=== PATIENT | female | born 1995 | race Caucasian/White ===

== ENCOUNTER 2017-05-30 12:02 | Emergency (ER) | payer BC, MEDICAID ==
[~2017-05-30] VITALS: Ht 160 cm; Wt 69.9 kg
[2017-05-30 12:10] VITALS: BP_SYST 148
[2017-05-30 13:05] LABS: BILIRUBIN,URINE NEGATIVE (NEGATIVE); CLARITY/URINE CLEAR (CLEAR); COLOR,URINE YELLOW (YELLOW); GLUCOSE,URINE NEGATIVE (NEGATIVE); KETONES,URINE NEGATIVE (NEGATIVE); LEUKOCYTE ESTERASE ,URINE TRACE (NEGATIVE); NITRITE, URINE NEGATIVE (NEGATIVE); PROTEIN URINE NEGATIVE (NEGATIVE); UROBILINOGEN,URINE 0.2 (0.2-1.0)
[2017-05-30 13:13] LABS: HCG,QUAL RESULT NEGATIVE (NEGATIVE)
[2017-05-30 13:15] LABS: BLOOD, URINE TRACE (NEGATIVE)
[2017-05-30 13:31] LABS: BACTERIA,URINE FEW /HPF (None Seen); RBC,URINE 0-3 /HPF (0-3)
[2017-05-30 13:32] LABS: MUCUS,URINE 1+ /LPF (None Seen)
[2017-05-30 13:36] LABS: CALCIUM 9.3 mg/dL (8.4-11.0); CREATININE 0.65 mg/dL (0.55-1.30)
[2017-05-30 13:41] LABS: ALBUMIN 4.3 g/dL (3.4-4.8); TOTAL BILIRUBIN 0.4 mg/dL (0.0-1.0)
[2017-05-30 13:57] LABS: BASOPHILS % (AUTO) 0.3 % (0.0-2.0); EOSINOPHILS # (AUTO) 0.1 K/uL (0.0-0.4); EOSINOPHILS % (AUTO) 0.9 % (0.0-4.0); HEMATOCRIT 42.7 % (36-48); HEMOGLOBIN 14.3 g/dL (12.0-16.0); LYMPHOCYTES # (AUTO) 2.1 K/uL (1.0-5.5); LYMPHOCYTES % (AUTO) 23.9 % (20.5-51.5); MEAN CORPUSCULAR HEMOGLOBIN 30 pg (27-31); MEAN CORPUSCULAR HGB CONC 34 % (32-36); MEAN CORPUSCULAR VOLUME 90 fL (79.0-98.0); MONOCYTES # (AUTO) 0.5 K/uL (0.0-1.0); MONOCYTES % (AUTO) 6.1 % (1.7-9.3); NEUTROPHILS # (AUTO) 6.1 K/uL (1.8-7.7); NEUTROPHILS % (AUTO) 68.8 % (40.0-70.0); PLATELET COUNT (AUTO) 263 K/uL (130-430); RED BLOOD CELL COUNT(AUTO) 4.76 MIL/uL (4.2-6.2); WHITE BLOOD COUNT (AUTO) 8.8 K/uL (4.8-10.8)
[2017-05-30 14:16] VITALS: BP_SYST 136
[2017-06-01 02:15] LABS: CHLAMYDIA TRACHOMATIS NAA Negative (Negative); NEISSERIA GONORRHOEAE NAA Negative (Negative)
== END 2017-05-30 14:16 | disposition home or self-care (01) ==
LOC: SED 12:02
DX: N39.0 Urinary tract infection, site not specified (principal); R50.9 Fever, unspecified
CPT/HCPCS: 36415; 80053; 81000-TC; 84703; 85025; 86710; 87086; 87491; 87591; 99284

== ENCOUNTER 2018-12-24 14:41 | Emergency (ER) | payer MEDICAID ==
[~2018-12-24] VITALS: Ht 162.6 cm; Wt 63.5 kg
[2018-12-24 14:42] VITALS: BP_SYST 140
--- NOTE | 2018-12-24 14:50 | NUR ---
Patient to ER bed 3 to gown for evaluation. Side rails up. Report given to JOCELYNE Diez.
--- NOTE | 2018-12-24 14:54 | NUR ---
Note undone in EDM - 12/24/18 at 1555 by NEGIN Patient is awake, alert, and oriented x4. Patient report that her family is sick and she had a fever of 103 this morning. Patient had an episode of nausea and vomiting this morning. Patient took some tylenol. Current temporal temperature is 97.7, patient denies nausea, vomiting, and pain at this time. States she couldn't go to school.
--- NOTE | 2018-12-24 15:10 | NUR ---
ER BOONE [place] examining patient.
[2018-12-24] MEDS ORDERED: ONDANSETRON 4 MG ODT TAB PO ONE (15:15)
[2018-12-24 16:04] VITALS: BP_SYST 134
--- NOTE | 2018-12-24 16:04 | NUR ---
Patient given written and verbal discharge instructions and verbalizes understanding. ER MD discussed with patient the results and treatment provided. Patient in stable condition. ID arm band removed. Rx of motrin, zofran given. Patient educated on pain management and to follow up with PMD. Pain Scale 0/10. Opportunity for questions provided and answered. Medication side effect fact sheet provided.
== END 2018-12-24 16:04 | disposition home or self-care (01) ==
LOC: SED 14:41
DX: R11.2 Nausea with vomiting, unspecified (principal); R03.0 Elevated blood-pressure reading, without diagnosis of hypertension
CPT/HCPCS: 99283; Q0162; 99282

== ENCOUNTER 2019-01-05 21:39 | Emergency (ER) | payer MEDICAID ==
[~2019-01-05] VITALS: Ht 160 cm; Wt 68.9 kg
[2019-01-05 21:47] VITALS: BP_SYST 130
[2019-01-05 23:37] LABS: BILIRUBIN,URINE NEGATIVE (NEGATIVE); BLOOD, URINE 1+ (NEGATIVE); CLARITY/URINE SL HAZY (CLEAR); GLUCOSE,URINE 2+ (NEGATIVE); KETONES,URINE TRACE (NEGATIVE); LEUKOCYTE ESTERASE ,URINE 2+ (NEGATIVE); NITRITE, URINE POSITIVE (NEGATIVE); PROTEIN URINE 3+ (NEGATIVE)
[2019-01-05 23:40] LABS: COLOR,URINE ORANGE (YELLOW)
[2019-01-05 23:53] LABS: BACTERIA,URINE MODERATE /HPF (None Seen); RBC,URINE 20-50 /HPF (0-3); WBC,URINE 20-50 /HPF (0-3)
[2019-01-06 00:30] VITALS: BP_SYST 130
[2019-01-08 04:16] LABS: CHLAMYDIA TRACHOMATIS NAA Negative (Negative); NEISSERIA GONORRHOEAE NAA Negative (Negative)
== END 2019-01-06 00:30 | disposition home or self-care (01) ==
LOC: SED 21:39
DX: N39.0 Urinary tract infection, site not specified (principal)
CPT/HCPCS: 81000-TC; 81025; 87086; 87491; 87591; 99283

== ENCOUNTER 2021-02-17 16:22 | Emergency (ER) | payer MEDICAID ==
[~2021-02-17] VITALS: Ht 160 cm; Wt 68.9 kg
--- NOTE | 2021-02-17 16:25 | NUR ---
Placed in room 01 . Placed on cafeteria monitor, blood pressure machine and pulse oximeter. To gown for exam. Side rails up.
[2021-02-17 16:28] VITALS: BP_SYST 132
--- NOTE | 2021-02-17 16:30 | NUR ---
Patient noted to be awake, alert, and oriented x 3. In no acute distress. VSS. Patient noted to be talking on cell phone upon arrival. Awaiting MD evaluation. Addendum: 02/17/21 at 1644 by SDEDJT SHERYL. Reported to have taken a total of 6 100 mg Trazadone pills after a conflict with significant other.
--- NOTE | 2021-02-17 16:38 | NUR ---
Dr Ozuna at bedside to evaluate patient
--- NOTE | 2021-02-17 16:40 | NUR ---
Poison control notified per cupola charger insulation.
[2021-02-17 17:14] LABS: BASOPHILS % (AUTO) 0.4 % (0.0-2.0); EOSINOPHILS % (AUTO) 0.2 % (0.0-4.0); HEMATOCRIT 39.8 % (36-48); HEMOGLOBIN 13.8 g/dL (12.0-16.0); LYMPHOCYTES # (AUTO) 1.6 K/uL (1.0-5.5); LYMPHOCYTES % (AUTO) 20.2 % (20.5-51.5); MEAN CORPUSCULAR HEMOGLOBIN 31 pg (27-31); MEAN CORPUSCULAR HGB CONC 35 % (32-36); MEAN CORPUSCULAR VOLUME 89 fL (79.0-98.0); MONOCYTES # (AUTO) 0.4 K/uL (0.0-1.0); MONOCYTES % (AUTO) 5.7 % (1.7-9.3); NEUTROPHILS # (AUTO) 5.8 K/uL (1.8-7.7); NEUTROPHILS % (AUTO) 73.5 % (40.0-70.0); PLATELET COUNT (AUTO) 265 K/uL (130-430); RED BLOOD CELL COUNT(AUTO) 4.47 MIL/uL (4.2-6.2); RED CELL DISTRIBUTION WIDTH 12.6 % (9.0-15.0); WHITE BLOOD COUNT (AUTO) 7.9 K/uL (4.8-10.8)
--- NOTE | 2021-02-17 17:27 | NUR ---
Moved to bed 5 per conveyor line battery charger
[2021-02-17 17:28] LABS: ANION GAP 16 (5-15); CHLORIDE 102 mmol/L (98-107); CREATININE 0.66 mg/dL (0.55-1.30); GLUCOSE 108 mg/dL (70-99); POTASSIUM 3.6 mmol/L (3.5-5.1); SODIUM SERUM 141 mmol/L (136-145); UREA NITROGEN, BLOOD 8 mg/dL (8-21)
[2021-02-17 17:32] LABS: GFR AFRICAN AMERICAN 139 mL/min (>90)
[2021-02-17 17:34] LABS: ALANINE AMINOTRANSFERASE 21 U/L (12-78); ALBUMIN 4.5 g/dL (3.4-4.8); ALCOHOL, BLOOD 123 mg/dL (<10); ASPARTATE AMINOTRANSFERASE 16 U/L (10-37); TOTAL BILIRUBIN 0.3 mg/dL (0.0-1.0)
[2021-02-17 17:35] LABS: ACETAMINOPHEN < 1 ug/mL (1-30)
--- NOTE | 2021-02-17 17:35 | NUR ---
Urine sample sent to lab after test completed.
[2021-02-17 17:48] LABS: BILIRUBIN,URINE NEGATIVE (NEGATIVE); BLOOD, URINE NEGATIVE (NEGATIVE); COLOR,URINE YELLOW (YELLOW); GLUCOSE,URINE NEGATIVE (NEGATIVE); KETONES,URINE NEGATIVE (NEGATIVE); LEUKOCYTE ESTERASE ,URINE NEGATIVE (NEGATIVE); NITRITE, URINE NEGATIVE (NEGATIVE); PROTEIN URINE NEGATIVE (NEGATIVE); UROBILINOGEN,URINE 0.2 (0.2-1.0)
[2021-02-17 18:09] LABS: BARBITURATE, URINE NEGATIVE (NEG <=200); BENZODIAZEPINE, URINE NEGATIVE (NEG <=150); CANNABINOID, URINE NEGATIVE (NEG <=50); COCAINE, URINE NEGATIVE (NEG <=150); METHAMPHETAMINES SCREEN,URINE NEGATIVE (NEG <=500); OPIATE, URINE NEGATIVE (NEG <=100); PHENCYCLIDINE SCREEN,URINE NEGATIVE (NEG <=25); URINE AMPHETAMINE NEGATIVE (NEG <=500); URINE METHADONE NEGATIVE (NEG <=200); URINE OXYCODONE SCREEN NEGATIVE (NEG <=100); URINE PROPOXYPHENE SCREEN NEGATIVE (NEG <=300)
[2021-02-17 18:10] LABS: UR TRICYCLIC ANTIDEPRESSANTS NEGATIVE (NEG <=300)
--- NOTE | 2021-02-17 18:17 | NUR ---
Patient resting in bed; in no acute distress. Mother at bedside. VSS. Will continue to monitor.
[2021-02-17 18:41] LABS: CLARITY/URINE CLEAR (CLEAR)
--- NOTE | 2021-02-17 19:09 | NUR ---
Report given to Taisha CASANOVA
--- NOTE | 2021-02-17 19:10 | NUR ---
REPORT RECEIVED FROM DAY SHIFT RN.
--- NOTE | 2021-02-17 19:15 | NUR ---
RN TO PT ROOM. PT LYING IN BED WITH EYES CLOSED, APPEARS TO BE ASLEEP AT THIS TIME. EQUAL RISE AND FALL OF CHEST. MOTHER AT BEDSIDE. DENIES ANY NEEDS AT THIS TIME. ALL VS ARE STABLE AT THIS TIME. NO ACUTE DISTRESS. WILL CONTINUE TO MONITOR.
--- NOTE | 2021-02-17 20:30 | NUR ---
BOYFRIEND AT BEDSIDE.
--- NOTE | 2021-02-17 20:35 | NUR ---
POISON CONTROL CONTACTED RN. POISON CONTROL RECOMMENDED THAT PT CONTINUE TO BE OBSERVED BY MD AND ED STAFF. POISON CONTROL STATED THAT THEY WERE CLOSING OUT THE PT'S CASE. RN NOTIFIED MD. NO NEW ORDERS RECEIVED AT THIS TIME.
--- NOTE | 2021-02-17 21:39 | NUR ---
TELE PSYCH CART AT BEDSIDE.
--- NOTE | 2021-02-18 01:44 | NUR ---
PT LYING IN BED WITH EYES CLOSED, APPEARS TO BE ASLEEP. EQUAL RISE AND FALL OF CHEST. NO ACUTE DISTRESS AT THIS TIME. BOYFRIEND AT BEDSIDE. WILL CONTINUE TO MONITOR.
--- NOTE | 2021-02-18 02:00 | NUR ---
VERBAL ORDERS PER MD CLAIRE TO BOLUS 2L NS. RN VERIFIED ORDERS WITH MD. RN ADMINISTERED 2L NS BOLUS.
[2021-02-18] MEDS ORDERED: POTASSIUM CHLORIDE 20 MEQ TAB.PRT.SR PO ONE (02:30)
--- NOTE | 2021-02-18 02:40 | NUR ---
PT VOMITTED AFTER TAKING PO K+. ORDERED IV K+, ADMINISTERED BY JOCELYNE FERNANDEZ.
[2021-02-18] MEDS ORDERED: KCL 20 mEq in 100 mL (PREMIX) 100 ML IV ONE (02:45)
[2021-02-18] MEDS ORDERED: NACL 0.9% 1,000 ML IV ONE (03:30)
--- NOTE | 2021-02-18 03:37 | NUR ---
LYING IN BED WITH EYES CLOSED, APPEARS TO BE SLEEPING. EQUAL RISE AND FALL OF CHEST. NO ACUTE DISTRESS AT THIS TIME. WILL CONTINUE TO MONITOR.
[2021-02-18] MEDS ORDERED: LORazepam 1 MG TABLET PO ONE (06:30)
[2021-02-18] MEDS ORDERED: METOPROLOL TARTRATE 5 MG/5 ML AMPUL IVP ONE (06:30)
[2021-02-18] MEDS ORDERED: LORA-259 PO (06:36)
--- NOTE | 2021-02-18 07:20 | NUR ---
Patient given written and verbal discharge instructions and verbalizes understanding. ER MD discussed with patient the results and treatment provided. Patient in stable condition. ID arm band removed. IV catheter removed intact and dressing applied, no active bleeding. Rx of ATIVAN PO given. Patient educated on pain management and to follow up with PMD. Pain Scale 0/10. Opportunity for questions provided and answered. Medication side effect fact sheet provided. ALL VS ARE STABLE.
[2021-02-18 07:27] VITALS: BP_SYST 130
== END 2021-02-18 07:20 | disposition home or self-care (01) ==
LOC: SED 16:22
DX: T43.211A Poisoning by selective serotonin and norepinephrine reuptake inhibitors, accidental (unintentional), initial encounter (principal); F10.229 Alcohol dependence with intoxication, unspecified; F43.9 Reaction to severe stress, unspecified; Z79.899 Other long term (current) drug therapy
CPT/HCPCS: 36415; 80053; 80307; 81003; 81025; 85025; 93005 ×2; 96361; 96374; 99284; G0480; J3480; J3490; G0481; G0482